=== PATIENT | male | born 2005 | race Caucasian/White ===

== ENCOUNTER 2024-10-13 19:03 | Inpatient (IN) | payer MEDICAID, OTHER ==
[~2024-10-13] VITALS: Ht 154.9 cm; Wt 57.6 kg
[2024-10-13] MEDS: SODIUM CHLORIDE 0.9% (SEPSIS BOLUS) IV ONE (20:15)
[2024-10-13] MEDS: PIPERACILLIN/TAZO 3.375G/50ML 50 ML IV SCH (20:22)
[2024-10-13 20:31] LABS: INR 1.1
[2024-10-13 20:38] LABS: HEMATOCRIT. 43.1 % (42.0-52.0); HEMOGLOBIN. 14.6 g/dL (14.0-18.0); RED BLOOD CELL COUNT 4.37 mill/uL (4.7-6.1); RED CELL DISTRIBUTION WIDTH 14.2 % (11.6-14.6)
[2024-10-13 20:57] LABS: CREATININE 0.7 mg/dL (0.6-1.3)
[2024-10-13 20:58] LABS: UREA NITROGEN BLOOD 14 mg/dL (9-23)
[2024-10-13 20:59] LABS: ASPARTATE AMINOTRANSFERASE 663 IU/L (<34)
[2024-10-13 21:00] LABS: BILIRUBIN DIRECT 0.6 mg/dL (<=3.0); BILIRUBIN TOTAL 2.1 mg/dL (0.1-1.0); PROTEIN TOTAL 8.9 g/dL (6.0-8.3)
[2024-10-13 21:13] LABS: BAND% 3.0 % (1.0-6.0); LYMPHOCYTES % MANUAL 4.0 % (20.0-50.0); MONOCYTES % MANUAL 9.0 % (2.0-8.0); NEUTROPHILS % MANUAL 84.0 % (45.0-75.0); PLATELET ESTIMATE NORMAL
[2024-10-13 21:14] LABS: PLATELET 108 x1000/uL (130-400)
[2024-10-13] MEDS: VANCOMYCIN 1G PREMIX 200 ML IV SCH (21:16)
[2024-10-13 22:53] LABS: CLARITY URINE CLEAR (CLEAR); COLOR URINE DARK YELLOW (YELLOW); GLUCOSE URINE NEGATIVE (NEGATIVE); KETONES URINE TRACE (NEGATIVE); LEUKOCYTE ESTERASE URINE TRACE (NEGATIVE); NITRITE URINE NEGATIVE (NEGATIVE); OCCULT BLOOD URINE NEGATIVE (NEGATIVE); PH URINE 7.0 (4.5-8.0); PROTEIN URINE 2+ (NEGATIVE); SPECIFIC GRAVITY URINE 1.017 (1.005-1.030); UROBILINOGEN URINE 1.0 E.U./dL (0.2-1.0)
[2024-10-13 23:00] VITALS: BP 118/76; PULSE 105; RESP 21; TEMP 37.252
[2024-10-14] VITALS: BP 118/81; PULSE 90; RESP 18; TEMP 37.1; O2SAT 95
[2024-10-14 00:17] LABS: BACTERIA URINE TRACE; RBC URINE NONE SEEN /hpf (0-2); SQUAMOUS EPITHELIAL CELL URINE RARE /lpf (RARE/1+)
[2024-10-14] MEDS ORDERED: CLONIDINE 0.1MG TABLET PO PRN (03:30)
[2024-10-14] MEDS ORDERED: ACETAMINOPHEN 325MG TABLET PO PRN ×2 (03:30)
[2024-10-14] MEDS ORDERED: CLINDAMYCIN 600 MG in DEXTROSE 5% WATER 50 ML IV SCH (03:30)
[2024-10-14] MEDS ORDERED: DOCUSATE SODIUM 100MG CAPSULE PO PRN (03:30)
[2024-10-14] MEDS ORDERED: ONDANSETRON HCL 4MG/2ML INJ IV PRN (03:30)
[2024-10-14 04:00] VITALS: BP 120/78; PULSE 79; RESP 20; TEMP 37; O2SAT 96
[2024-10-14 05:34] VITALS: BP 120/78; PULSE 79; RESP 20; TEMP 37; O2SAT 96
[2024-10-14 06:10] LABS: *AMPHETAMINES SCREEN URINE NEGATIVE (NEGATIVE)
[2024-10-14 06:11] LABS: *BARBITURATES SCREEN URINE NEGATIVE (NEGATIVE); *BENZODIAZEPINES SCREEN URINE NEGATIVE (NEGATIVE)
[2024-10-14 06:12] LABS: *COCAINE SCREEN URINE NEGATIVE (NEGATIVE); CANNABINOID URINE SCREEN NEGATIVE (NEGATIVE); ECSTASY MDMA SCREEN URINE NEGATIVE (NEGATIVE); METHADONE URINE SCREEN NEGATIVE (NEGATIVE); OPIATES URINE SCREEN NEGATIVE (NEGATIVE); PHENCYCLIDINE URINE SCREEN NEGATIVE (NEGATIVE)
[2024-10-14] MEDS: FOLIC ACID 1 MG, THIAMINE HCL 100 MG, MVI, ADULT NO.1 10 ML in DEXTROSE 5% WATER 1,000 ML IV ONE (06:29)
[2024-10-14] MEDS: SODIUM CHLORIDE 0.9% 1,000 ML IV SCH (06:29)
[2024-10-14] MEDS: CLINDAMYCIN 300 MG in DEXTROSE 5% WATER 50 ML IV SCH (06:29)
[2024-10-14] MEDS ORDERED: IOHEXOL-300 100 ML BOTTLE ONE (07:50)
[2024-10-14 08:00] VITALS: BP 113/93; PULSE 99; RESP 21; TEMP 37; O2SAT 97
[2024-10-14] MEDS: VANCOMYCIN 1GM/200ML PMX (BAXTER) IV SCH (08:07)
[2024-10-14 09:24] LABS: HEPATITIS C AB NON REACTIVE (Neg) (Negative)
[2024-10-14] MEDS: PIPERACILLIN/TAZO 3.375G/50ML 50 ML IV SCH (10:18)
[2024-10-14 10:52] LABS: PHOSPHORUS 3.1 mg/dL (2.5-4.9)
[2024-10-14 12:00] VITALS: BP 115/73; PULSE 98; RESP 20; TEMP 36.6; O2SAT 98
[2024-10-14] MEDS: LORAZEPAM 2MG/ML UD SYRINGE IV PRN ×2 (13:15→22:16)
[2024-10-14] MEDS ORDERED: LORAZEPAM 1MG TABLET PO PRN (15:00)
[2024-10-14] MEDS: LORAZEPAM 2MG/ML UD SYRINGE IV SCH ×2 (15:00→16:45)
[2024-10-14] MEDS: LORAZEPAM 2MG/ML UD SYRINGE IM SCH (15:24)
[2024-10-14] MEDS: DIAZEPAM 5 MG/ML 2ML SYR IM SCH (17:10)
[2024-10-14] MEDS ORDERED: DIPHENHYDRAMINE 50MG/ML VIAL IV PRN (17:30)
[2024-10-14] MEDS: HALOPERIDOL LACTATE 5MG/ML VIAL IM PRN (18:18)
[2024-10-14 20:00] VITALS: TEMP 36.3
[2024-10-14] MEDS: DIPHENHYDRAMINE 50MG/ML VIAL IM PRN (20:45)
[2024-10-14] MEDS ORDERED: PNEUMOCOCCAL 20-VAL CONJ-DIP CRM 0.5ML IM ONE (21:00)
[2024-10-14] MEDS ORDERED: DIPHENHYDRAMINE 50MG/ML VIAL IM SCH (21:15)
[2024-10-14] MEDS ORDERED: HALOPERIDOL LACTATE 5MG/ML VIAL IM SCH (21:15)
[2024-10-14] MEDS ORDERED: LACTATED RINGERS 1,000 ML IV NR (21:36)
[2024-10-14] MEDS ORDERED: LORAZEPAM 2MG/ML UD SYRINGE IV PRN (22:00)
[2024-10-14] MEDS ORDERED: DIAZEPAM 5 MG/ML 2ML SYR IV ONE (22:00)
[2024-10-14] MEDS: DIAZEPAM 5 MG/ML 2ML SYR IV SCH (22:42)
[2024-10-14] MEDS ORDERED: MIDAZOLAM 100MG/100ML PMX 100 ML IV PRN (22:45)
[2024-10-14] MEDS ORDERED: FENTANYL 2500MCG/250ML PMX 250 ML IV PRN (22:45)
[2024-10-14 23:22] LABS: BG BASE EXCESS 1.1 mmol/L (-2.0-3.0); BG CARBOXYHEMOGLOBIN 0.9 % (0.5-1.5); BG DEOXYHEMOGLOBIN 2.6 % (0.0-5.0); BG HCO3 ACT 25.0 mmol/L (21.0-28.0); BG METHEMOGLOBIN 0.2 % (0.5-1.5); BG OXYGEN SATURATION 97.4 % (94.0-98.0); BG OXYHEMOGLOBIN 96.3 % (94.0-98.0); BG PCO2 37.4 mmHg (35.0-48.0); BG PH 7.443 (7.350-7.450); BG PO2 91.8 mmHg (83.0-108.0); BG SAMPLE SITE RIGHT BRACHIAL; BG TOTAL HEMOGLOBIN 13.8 g/dL (13.5-17.5); BG VENT MODE ROOM AIR
[2024-10-15] VITALS (81 sets, daily range): BP systolic 90–156; BP diastolic 45–120; PULSE 73–129; RESP 12–36; TEMP 36.1–36.8; O2SAT 90–100
[2024-10-15] MEDS: SODIUM CHLORIDE 0.9% 1,000 ML IV ONE (01:32)
[2024-10-15 01:37] LABS: CREATININE 0.6 mg/dL (0.6-1.3); UREA NITROGEN BLOOD 11 mg/dL (9-23)
[2024-10-15 01:38] LABS: ETHANOL BLOOD < 10 mg/dL (<10)
[2024-10-15 01:39] LABS: PLATELET 86 x1000/uL (130-400); RED BLOOD CELL COUNT 3.82 mill/uL (4.7-6.1); RED CELL DISTRIBUTION WIDTH 14.0 % (11.6-14.6)
[2024-10-15] MEDS ORDERED: LACTATED RINGERS 1,000 ML IV SCH (02:15)
[2024-10-15] MEDS ORDERED: DEXTROSE 50% WATER 50ML SYRINGE IV NR (02:15)
[2024-10-15] MEDS ORDERED: DEXT 5%/0.45% NACL 1000ML 1,000 ML IV SCH (02:45)
[2024-10-15] MEDS ORDERED: DEXT 5%/LACTATED RINGERS 1,000 ML IV SCH (03:15)
[2024-10-15] MEDS: KCL 20MEQ/100ML PREMIX 100 ML IV NR (03:36)
[2024-10-15] MEDS: DEXT 5%/0.45% NACL 1000ML 1,000 ML IV SCH (03:37)
[2024-10-15] MEDS: PROPOFOL 10MG/ML 100ML 100 ML IV PRN (03:39)
[2024-10-15 07:08] LABS: BASOPHILS % 0.5 % (0.0-2.0); EOSINOPHILS % 0.4 % (0.0-5.0); HEMATOCRIT. 36.7 % (42.0-52.0); HEMOGLOBIN. 12.2 g/dL (14.0-18.0); LYMPHOCYTES % 9.3 % (20.0-50.0); MEAN PLATELET VOLUME 13.0 fl (7.4-10.4); MONOCYTES % 11.8 % (2.0-8.0); NEUTROPHILS % 78.0 % (40.0-76.0); PLATELET 87 x1000/uL (130-400); RED BLOOD CELL COUNT 3.63 mill/uL (4.7-6.1); RED CELL DISTRIBUTION WIDTH 14.1 % (11.6-14.6)
[2024-10-15 07:12] LABS: CREATINE KINASE MB FRACTION 32.2 ng/mL (0.5-3.6)
[2024-10-15 07:22] LABS: CREATININE 0.6 mg/dL (0.6-1.3); UREA NITROGEN BLOOD 9 mg/dL (9-23)
[2024-10-15 07:23] LABS: VANCOMYCIN TROUGH < 3.0 ug/mL (5.0-10.0)
[2024-10-15 07:24] LABS: ASPARTATE AMINOTRANSFERASE 426 IU/L (<34); BILIRUBIN DIRECT 0.8 mg/dL (<=3.0)
[2024-10-15 07:25] LABS: BILIRUBIN TOTAL 2.1 mg/dL (0.1-1.0); PROTEIN TOTAL 7.0 g/dL (6.0-8.3)
[2024-10-15 07:50] LABS: TROPONIN I HIGH SENSITIVITY 133 ng/L (3.0-53)
[2024-10-15] MEDS: FOLIC ACID 1MG TABLET PO SCH (08:50)
[2024-10-15] MEDS: MULTIVITAMINS,THER W-MINERALS TABLET PO SCH (08:50)
[2024-10-15] MEDS: PANTOPRAZOLE SODIUM 40 MG/VIAL IV SCH (08:51)
[2024-10-15] MEDS: THIAMINE HCL 100 MG/1 ML 2ML VIAL IM SCH (09:00)
[2024-10-15 10:12] LABS: BG BASE EXCESS -1.8 mmol/L (-2.0-3.0); BG CARBOXYHEMOGLOBIN 0.7 % (0.5-1.5); BG DEOXYHEMOGLOBIN 0.6 % (0.0-5.0); BG FRACTION INSPIRED OXYGEN 40; BG HCO3 ACT 23.3 mmol/L (21.0-28.0); BG METHEMOGLOBIN 0.2 % (0.5-1.5); BG OXYGEN SATURATION 99.4 % (94.0-98.0); BG OXYHEMOGLOBIN 98.5 % (94.0-98.0); BG PCO2 40.6 mmHg (35.0-48.0); BG PEEP (cmH2O) 5.0 cmH2O; BG PH 7.376 (7.350-7.450); BG PO2 161.6 mmHg (83.0-108.0); BG SAMPLE SITE RIGHT RADIAL; BG TIDAL VOLUME(mL) 350.0 mL; BG TOTAL HEMOGLOBIN 13.7 g/dL (13.5-17.5); BG VENT MODE VENT - AC; BG VENT RATE 14.0 set
[2024-10-15] MEDS: MIDAZOLAM HCL 2 MG/2 ML VIAL IV SCH (11:19)
[2024-10-15] MEDS: KCL 20MEQ/100ML PREMIX 100 ML IV SCH (11:19)
[2024-10-15] MEDS: VANCOMYCIN 1.25GM/250ML 250 ML IV SCH (11:20)
[2024-10-15 13:05] LABS: CREATINE KINASE MB FRACTION 25.0 ng/mL (0.5-3.6)
[2024-10-15 13:25] LABS: TROPONIN I HIGH SENSITIVITY 75.0 ng/L (3.0-53)
[2024-10-15] MEDS: LACTULOSE 20G/30ML UDC PO SCH (15:11)
[2024-10-15] MEDS: LACTATED RINGERS 1,000 ML IV SCH (15:13)
[2024-10-15 19:39] LABS: CREATINE KINASE MB FRACTION 16.8 ng/mL (0.5-3.6)
[2024-10-15 19:42] LABS: TROPONIN I HIGH SENSITIVITY 112.0 ng/L (3.0-53)
[2024-10-15] MEDS: BACITRACIN 14GM TUBE TOP SCH (20:32)
[2024-10-15] MEDS: CEFEPIME 2GM/100ML 100 ML IV SCH (21:01)
[2024-10-16] VITALS (97 sets, daily range): BP systolic 95–156; BP diastolic 51–105; PULSE 70–141; RESP 10–24; TEMP 36.2–37.2; O2SAT 97–100
[2024-10-16 07:10] LABS: PLATELET 87 x1000/uL (130-400); RED BLOOD CELL COUNT 3.75 mill/uL (4.7-6.1); RED CELL DISTRIBUTION WIDTH 15.2 % (11.6-14.6)
[2024-10-16 07:17] LABS: CREATININE 0.7 mg/dL (0.6-1.3); TRIGLYCERIDE 92 mg/dL (0-150); UREA NITROGEN BLOOD < 5 mg/dL (9-23)
[2024-10-16 07:19] LABS: PHOSPHORUS 4.2 mg/dL (2.5-4.9)
[2024-10-16 08:29] LABS: BG BASE EXCESS 0.0 mmol/L (-2.0-3.0); BG CARBOXYHEMOGLOBIN 0.2 % (0.5-1.5); BG DEOXYHEMOGLOBIN 1.2 % (0.0-5.0); BG FRACTION INSPIRED OXYGEN 30; BG HCO3 ACT 26.1 mmol/L (21.0-28.0); BG METHEMOGLOBIN 0.3 % (0.5-1.5); BG OXYGEN SATURATION 98.8 % (94.0-98.0); BG OXYHEMOGLOBIN 98.3 % (94.0-98.0); BG PCO2 48.4 mmHg (35.0-48.0); BG PEEP (cmH2O) 5.0 cmH2O; BG PH 7.350 (7.350-7.450); BG PO2 133.8 mmHg (83.0-108.0); BG SAMPLE SITE RIGHT RADIAL; BG TIDAL VOLUME(mL) 350.0 mL; BG TOTAL HEMOGLOBIN 13.9 g/dL (13.5-17.5); BG TOTAL RESPIRATORY RATE 16 b/min; BG VENT MODE VENT - SIMV; BG VENT RATE 10.0 set
[2024-10-16] MEDS: PROPOFOL 10MG/ML 100ML 100 ML IV PRN (11:45)
[2024-10-16 12:24] LABS: INR 1.3
[2024-10-16] MEDS ORDERED: DEXTROSE 50% WATER 50ML SYRINGE IV PRN (17:15)
[2024-10-16] MEDS: LORAZEPAM 2MG/ML UD SYRINGE IV PRN (21:21)
[2024-10-17] VITALS (83 sets, daily range): BP systolic 109–155; BP diastolic 59–99; PULSE 66–124; RESP 12–33; TEMP 36.5–37.2; O2SAT 94–100
[2024-10-17 06:09] LABS: PLATELET 114 x1000/uL (130-400); RED BLOOD CELL COUNT 3.88 mill/uL (4.7-6.1); RED CELL DISTRIBUTION WIDTH 14.5 % (11.6-14.6)
[2024-10-17 06:36] LABS: CREATININE 0.8 mg/dL (0.6-1.3); TRIGLYCERIDE 124 mg/dL (0-150); UREA NITROGEN BLOOD < 5 mg/dL (9-23)
[2024-10-17] MEDS: THIAMINE HCL 100MG TABLET PO SCH (08:20)
[2024-10-17] MEDS: POTASSIUM CHLORIDE 20MEQ/PACKET NG NR (08:23)
[2024-10-17] MEDS ORDERED: PROPOFOL 10MG/ML 100ML 100 ML IV PRN (10:00)
[2024-10-17 12:14] LABS: BG BASE EXCESS -2.1 mmol/L (-2.0-3.0); BG CARBOXYHEMOGLOBIN 0.3 % (0.5-1.5); BG DEOXYHEMOGLOBIN 0.7 % (0.0-5.0); BG FRACTION INSPIRED OXYGEN 30; BG HCO3 ACT 22.1 mmol/L (21.0-28.0); BG METHEMOGLOBIN 0.1 % (0.5-1.5); BG OXYGEN SATURATION 99.3 % (94.0-98.0); BG OXYHEMOGLOBIN 98.9 % (94.0-98.0); BG PCO2 36.4 mmHg (35.0-48.0); BG PEEP (cmH2O) 8.0 cmH2O; BG PH 7.402 (7.350-7.450); BG PO2 147.2 mmHg (83.0-108.0); BG SAMPLE SITE RIGHT RADIAL; BG TIDAL VOLUME(mL) 450.0 mL; BG TOTAL HEMOGLOBIN 13.4 g/dL (13.5-17.5); BG VENT MODE VENT - AC; BG VENT RATE 14.0 set
[2024-10-17 19:07] LABS: BG BASE EXCESS -2.7 mmol/L (-2.0-3.0); BG CARBOXYHEMOGLOBIN 0.3 % (0.5-1.5); BG DEOXYHEMOGLOBIN 0.8 % (0.0-5.0); BG FRACTION INSPIRED OXYGEN 40; BG HCO3 ACT 22.9 mmol/L (21.0-28.0); BG METHEMOGLOBIN 0.1 % (0.5-1.5); BG OXYGEN SATURATION 99.2 % (94.0-98.0); BG OXYHEMOGLOBIN 98.8 % (94.0-98.0); BG PCO2 42.4 mmHg (35.0-48.0); BG PEEP (cmH2O) 8.0 cmH2O; BG PH 7.350 (7.350-7.450); BG PO2 165.3 mmHg (83.0-108.0); BG SAMPLE SITE RIGHT RADIAL; BG TOTAL HEMOGLOBIN 13.7 g/dL (13.5-17.5); BG VENT MODE VENT - CPAP
[2024-10-17] MEDS: IPRATROPIUM/ALBUTEROL 0.5-3(2.5)MG/3ML NEB HHN PRN (20:43)
[2024-10-18] VITALS (60 sets, daily range): BP systolic 61–136; BP diastolic 14–119; PULSE 63–118; RESP 14–28; TEMP 36.6–37.2; O2SAT 95–100
[2024-10-18] MEDS: DEXMEDETOMIDINE 100 ML IV PRN (00:42)
[2024-10-18 06:19] LABS: CREATININE 0.6 mg/dL (0.6-1.3)
[2024-10-18 06:20] LABS: UREA NITROGEN BLOOD < 5 mg/dL (9-23)
[2024-10-18 06:33] LABS: PLATELET 161 x1000/uL (130-400); RED BLOOD CELL COUNT 3.71 mill/uL (4.7-6.1); RED CELL DISTRIBUTION WIDTH 14.7 % (11.6-14.6)
[2024-10-18] MEDS: KCL 20MEQ/100ML PREMIX 100 ML IV SCH ×2 (09:57→13:00)
[2024-10-18] MEDS: DEXTROSE 5% WATER 1,000 ML IV SCH (10:00)
[2024-10-18 15:53] LABS: PHOSPHORUS 2.4 mg/dL (2.5-4.9)
[2024-10-19] VITALS: BP 129/81; PULSE 74; RESP 18; TEMP 36.8; O2SAT 98
[2024-10-19 04:00] VITALS: BP 116/61; PULSE 80; RESP 18; TEMP 36.8; O2SAT 100
[2024-10-19 07:09] LABS: CREATININE 0.7 mg/dL (0.6-1.3); UREA NITROGEN BLOOD 5 mg/dL (9-23)
[2024-10-19 07:59] LABS: PLATELET 212 x1000/uL (130-400); RED BLOOD CELL COUNT 3.71 mill/uL (4.7-6.1); RED CELL DISTRIBUTION WIDTH 13.8 % (11.6-14.6)
[2024-10-19] MEDS ORDERED: THIA50TA12 MT (09:18)
[2024-10-19] MEDS: POTASSIUM CHLORIDE 20MEQ TABLET SR PO NR (09:18)
[2024-10-19] MEDS ORDERED: LACT-390 PO (09:18)
[2024-10-19] MEDS ORDERED: LORA-250 MT (09:18)
[2024-10-19] MEDS ORDERED: FOLI-43 MT (09:18)
[2024-10-19] MEDS ORDERED: KETOROLAC 30MG/ML VIAL IV PRN (10:30)
[2024-10-19] MEDS ORDERED: LEVO-65 MT (10:46)
[2024-10-19] MEDS ORDERED: CLIN-194 MT (10:46)
[2024-10-19] MEDS: POTASSIUM CHLORIDE 20MEQ/PACKET PO SCH (11:55)
[2024-10-19 13:21] VITALS: BP 109/60; PULSE 70; RESP 20; TEMP 97.7
== END 2024-10-19 15:07 | disposition home or self-care (01) | DRG 720 ==
LOC: ER 19:03 → 3WST 21:15 → EDBEDREQTM 21:30 → EDBEDREQ 21:43 → ENRESERV 21:53 → 3WST 10-14 13:40 → CVICU 10-14 23:41 → 7EST 10-18 17:58
PROVIDERS: ADMIT Internal Medicine; ATTEND Internal Medicine
PROC: 5A1945Z Respiratory Ventilation, 24-96 Consecutive Hours (ICD-10-PCS; principal; 2024-10-15)
PROC: 0BH17EZ Insertion of Endotracheal Airway into Trachea, Via Natural or Artificial Opening (ICD-10-PCS; 2024-10-15)
DX: A41.52 Sepsis due to Pseudomonas (principal); J96.01 Acute respiratory failure with hypoxia; I21.A1 Myocardial infarction type 2; G93.41 Metabolic encephalopathy; E72.20 Disorder of urea cycle metabolism, unspecified; F10.131 Alcohol abuse with withdrawal delirium; E87.0 Hyperosmolality and hypernatremia; E87.20 Acidosis, unspecified; T51.8X1A Toxic effect of other alcohols, accidental (unintentional), initial encounter; D53.9 Nutritional anemia, unspecified; S40.022A Contusion of left upper arm, initial encounter; H60.12 Cellulitis of left external ear; M62.82 Rhabdomyolysis; H92.09 Otalgia, unspecified ear; D69.59 Other secondary thrombocytopenia; K70.10 Alcoholic hepatitis without ascites; E83.52 Hypercalcemia; E87.6 Hypokalemia; K70.30 Alcoholic cirrhosis of liver without ascites; L03.211 Cellulitis of face; K76.0 Fatty (change of) liver, not elsewhere classified; Y90.0 Blood alcohol level of less than 20 mg/100 ml; T63.391A Toxic effect of venom of other spider, accidental (unintentional), initial encounter; E80.6 Other disorders of bilirubin metabolism; E51.2 Wernicke's encephalopathy; Y92.89 Other specified places as the place of occurrence of the external cause; Z79.899 Other long term (current) drug therapy
CPT/HCPCS: 31500; 31720; 36415; 36600; 70487; 70490; 71045; 71046; 76700; 80048; 80076; 80202; 80305; 80320; 81003; 82140; 82330; 82375; 82550; 82553; 82805; 82962; 83605; 83735; 84100; 84132; 84145; 84478; 84484; 85025; 85027; 85362; 85379; 85384; 85651; 86141; 86705; 87070; 87077; 87186; 87340; 90732; 93005; 94002; 94003; 94070; 94640; 94664; 99285; A4606; J0692; J1200; J1630; J2060; J2250; J2470; J2543; J2704; J3010; J3373; J3411; J3480; J3490; J7030; J7060; J7070; J7120; Q9967; G0480